=== PATIENT | male | born 1950 | race American Indian/Alaskan Native ===

== ENCOUNTER 2020-06-25 08:41 | Day surgery (SDC) | payer MEDICARE ==
[2020-06-23 10:54] LABS: Hematocrit 43.4 % (35.5-45.6); Hemoglobin 14.6 gm/dl (11.8-15.2); Mean Corpuscular HGB Conc 34 % (32-34); Mean Corpuscular Volume 101 fl (84-94); Platelet Count 287 K/mm3 (140-440); Red Blood Count 4.29 M/mm3 (3.65-5.03); Red Cell Distribution Width 13.8 % (13.2-15.2)
[2020-06-23 11:14] LABS: BUN/Creatinine Ratio 12; Blood Urea Nitrogen 12 mg/dL (9-20); Calcium 9.8 mg/dL (8.4-10.2); Hemolysis Index 10
[2020-06-25] MEDS ORDERED: LACTATED RINGERS 1,000 ML IV SCH (10:15)
[2020-06-25] MEDS ORDERED: ONDANSETRON 4 MG/2 ML INJ IV PRN (10:39)
[2020-06-25] MEDS ORDERED: HYDROmorphone 1 MG/1 ML INJ IV PRN ×2 (10:39)
--- NOTE | 2020-06-25 10:40 | Anesthesia Day of Surgery ---
Anesthesia Day of Surgery - Day of Surgery Patient Examined: Yes Patient H&P Reviewed: Yes Patient is NPO: Yes
--- NOTE | 2020-06-25 10:44 | Anesthesia Consultation ---
Anesthesia Consult and Med Hx Date of service: 06/25/20 - Airway Anesthetic Teeth Evaluation: Caps ROM Head & Neck: Adequate Mental/Hyoid Distance: Adequate Mallampati Class: Class I Intubation Access Assessment: Good - Pre-Operative Health Status ASA Pre-Surgery Classification: ASA2 Proposed Anesthetic Plan: General - Pulmonary Hx Smoking: Yes (STOPPED X 10 YRS) Hx Respiratory Symptoms: No (+2FS) Hx Sleep Apnea: No (LESLIE PRE SCREEN HIGH RISK) - Cardiovascular System Hx Hypertension: Yes (X 10 YRS) - Central Nervous System Hx Psychiatric Problems: No - Other Systems Hx Cancer: No Hx Obesity: Yes
[2020-06-25] MEDS ORDERED: ceFAZolin/STERILE WATER 2 GM/20 ML SYRINGE IV NR (10:52)
[2020-06-25] MEDS ORDERED: dexAMETHasone 20 MG/5 ML VIAL ONE (11:22)
[2020-06-25] MEDS ORDERED: LIDOCAINE MPF (2%) 20 MG/1 ML VIAL 5 ML ONE (11:22)
[2020-06-25] MEDS ORDERED: GLYCOPYRROLATE 0.4 MG/2 ML INJ ONE (11:22)
[2020-06-25] MEDS ORDERED: PHENYLEPHRINE/NS 1,000 MCG/10 ML SYRINGE (OR USE) IV ONE (11:22)
[2020-06-25] MEDS ORDERED: ONDANSETRON 4 MG/2 ML INJ ONE (11:22)
[2020-06-25] MEDS ORDERED: propofoL 200 MG/20 ML VIAL IV ONE (11:23)
[2020-06-25] MEDS ORDERED: fentaNYL 100 MCG/2 ML INJ ONE (11:23)
--- NOTE | 2020-06-25 12:04 | Short Stay Summary ---
Short Stay Documentation Date of service: 06/25/20 - History H&P: obtained from office - Allergies and Medications Current Medications: Allergies No Known Allergies Allergy (Verified 06/20/20 14:35) Home Medications Medication Instructions Recorded Confirmed Last Taken Type Ibuprofen [Advil Migraine] 200 mg PO PRN PRN 06/20/20 06/20/20 Unknown History Lisinopril/Hydrochlorothiazide 1 each PO DAILY 06/20/20 06/20/20 Unknown History [Zestoretic 10-12.5 mg Tablet] Active Medications Cefazolin Sodium (Ancef/Sterile Water 2 Gm/20 Ml) 2 gm IV PREOP NR Stop: 06/25/20 20:00 Hydromorphone HCl (Dilaudid) 0.25 mg IV Q10MIN PRN PRN Reason: Pain, Moderate (4-6) Hydromorphone HCl (Dilaudid) 0.5 mg IV Q10MIN PRN PRN Reason: Pain , Severe (7-10) Lactated Ringer's (Lactated Ringers) 1,000 mls @ 100 mls/hr IV DIRECT [place] Ondansetron HCl (Zofran) 4 mg IV ONCE PRN PRN Reason: Nausea And Vomiting - Brief post op/procedure progress note Date of procedure: 06/25/20 Pre-op diagnosis: gross hematuria, bladder mass Post-op diagnosis: other (bph) Procedure: cysto, rpg, turp Anesthesia: GETA Surgeon: MISA GARCIA Estimated blood loss: minimal Pathology: list (prostate chips) Specimen disposition: to lab Condition: stable - Hospital course Hospital course: ousmane roberson on chart - Disposition Condition at discharge: Stable Disposition: DC-01 TO HOME OR SELFCARE Short Stay Discharge Plan Follow up with: PRIMARY CARE, [Primary Care Provider] - 7 Days
[2020-06-25] MEDS ORDERED: oxyCODONE /ACETAMINOPHEN 5-325MG TAB ONE (12:27)
[2020-06-25] MEDS ORDERED: oxyCODONE /ACETAMINOPHEN 5-325MG TAB PO PRN (12:30)
--- NOTE | 2020-06-25 12:36 | Operative Report ---
PREOPERATIVE DIAGNOSES: Gross hematuria, bladder mass. POSTOPERATIVE DIAGNOSES: Gross hematuria, bladder mass, benign prostate hyperplasia. PROCEDURES: Cystoscopy, bilateral retrograde pyelograms, transurethral resection of prostate. SURGEON: Ulysses Leiva MD ANESTHESIA: General. ESTIMATED BLOOD LOSS: Minimal. FLUIDS: Crystalloid. COMPLICATIONS: No complications. INDICATIONS: This patient is a 70-year-old gentleman with gross hematuria. CT of the abdomen and pelvis revealed a bladder mass and BPH. He presents now for endoscopic evaluation. DESCRIPTION OF PROCEDURE: The patient was taken to the operative suite, placed in a supine position. After adequate general anesthesia, placed in a dorsal lithotomy position, prepped and draped in a sterile fashion. Pancystourethroscopy was performed with a 22-Vincentian Storz cystoscope; no urethral abnormalities. His prostate had an area of erythema on the right side and BPH. Bladder; no tumors or stones. He does have diffuse trabeculation. Both ureteral orifices in normal position. Bilateral retrograde pyelograms were obtained with an 8-Vincentian [place] catheter and 8 mL of contrast. No filling defects or obstruction. Next, using a 24-Vincentian resectoscope and loop with the cutting and coag on 160 and 60, transurethral resection of the right prostate where this erythema was noted. Adequate hemostasis was achieved. Chips were evacuated out. The patient had nice channel for flow. The Brennan and ureteral orifices were intact. A 22-Vincentian 3-way catheter was placed. The chips were evacuated out with the [place] evacuator. The Paez was plugged. He will go home with the Paez and Bactrim and [place]. JOB# [id number] [facility]
--- NOTE | 2020-06-25 13:31 | Post Anesthesia Evaluation ---
- Post Anesthesia Evaluation Patient Participated: Yes Airway Patent: Yes Stable Respiratory Function: Yes Nausea/Vomiting: No Temp > 96.8F: Yes Pain Manageable: Yes Adequeate Hydration: Yes Anesthesia Complications: No Block Receding Appropriately: Not Applicable Patient on Ventilator: No
[2020-06-25] MEDS ORDERED: WATER FOR IRRIG STERILE 2000 ML IR ONE (13:32)
--- NOTE | 2020-06-25 14:45 | Fluoroscopy Report ---
Abdominal fluoroscopy INDICATION: Hematuria IMPRESSION: Bilateral ureterograms demonstrates no evidence of filling defect. IMPRESSION: Fluoroscopy time: 10 seconds. Fluoroscopic images: 9 . Signer Name: Monty Crowley MD Signed: 06/25/2020 2:40 PM Workstation Name: [id number]
[2020-06-25 20:36] VITALS: BP 161/81
== END 2020-06-25 08:42 | disposition home or self-care (01) ==
LOC: OR 08:41
PROVIDERS: ATTEND Urology
DX: R31.0 Gross hematuria (principal); R31.29 Other microscopic hematuria; Z20.828 Contact with and (suspected) exposure to other viral communicable diseases; N32.89 Other specified disorders of bladder; N40.0 Benign prostatic hyperplasia without lower urinary tract symptoms; E78.00 Pure hypercholesterolemia, unspecified; I10 Essential (primary) hypertension; E66.9 Obesity, unspecified; Z79.899 Other long term (current) drug therapy; Z98.890 Other specified postprocedural states; Z68.38 Body mass index [BMI] 38.0-38.9, adult
CPT/HCPCS: 36415; 52601; 74420; 80048; 85027; 88305; A4217; J1100; J2370; J2405; J2704; J3010; J7120; Q9967; U0003